=== PATIENT | male | born 1965 | race Caucasian/White ===

== ENCOUNTER 2017-03-26 16:16 | Emergency (ER) | payer SELFPAY ==
[2017-03-26 16:40] VITALS: BP 117/70; PULSE 61; TEMP 97.9; BMI 26.9
[2017-03-26] MEDS ORDERED: KETOROLAC TROMETHAMINE 60 MG/2 ML VIAL IM ONE (18:26)
[2017-03-26] MEDS ORDERED: diazePAM 5 MG TABLET PO ONE (18:26)
[2017-03-26] MEDS ORDERED: KETOROLAC TROMETHAMINE 60 MG/2 ML VIAL ONE (18:29)
[2017-03-26] MEDS ORDERED: diazePAM 5 MG TABLET ONE (18:30)
--- NOTE | 2017-03-26 18:36 | PDOC ---
History of Present Illness - General Chief Complaint: Back Pain Stated Complaint: LOWER BACK PAIN Time Seen by Provider: 03/26/17 16:52 History Source: Patient Exam Limitations: No Limitations - History of Present Illness Initial Comments: 03/26/17 18:30 CHIEF COMPLAINT: Lower back pain HISTORY OF PRESENT ILLNESS: 51-year-old male, History of OH, only taking atorvastin. Presents to the ER with low back pain. States that pain started two days ago. Was riding a bike and has been lifting heavy objects at work. Does have a hisotry of same but it went away on its own. This is not going away which prompted him to come to the ER. Nonradiating pain, no neurosensory deficits, no bowel or bladder difficulty incontinence or urinary retention, no saddle anesthesia, no footdrop. No history of IVDU or history of cancer. REVIEW OF SYSTEMS: GENERAL: Afebrile, denies any weakness RESPIRATORY: No cough, wheezing, or hemoptysis. CARDIAC: No chest pain or shortness of breath MUSCULOSKELETAL: Pain to generalized lower back. No point tenderness. Pain worse on right than left. SKIN : No erythema, no bruising, no deformity. GI/: Denies any abdominal pain, no urinary difficulty, incontinence or urinary retention. RECTAL: Denies any difficulty this A.m. NEUROLOGICAL: Denies any numbness or tingling. No neurosensory deficits. PHYSICAL EXAM: GENERAL: The patient is awake, alert, and fully oriented, in no acute distress. RESPIRATORY: Lungs clear bilaterally, no rhonchi wheezes or crackles CARDIAC: S1-S2 audible, no murmur rub or gallop MUSCULOSKELETAL: Pain to generalized lower back, More on the right then the left nonradiating, no tingling or sensory deficit. Less than 2 second cap refill , +4 popliteal and pedal pulses. Mild shift to lower back GI/: Abdomen soft, nontender, nondistended. No rebound tenderness. No masses palpable. MUSCULOSKELETAL: No spinal point tenderness. Normal reflexive and no deficits to sensation or strength. RECTAL: Normal Rectal Tone. SKIN: Warm, Dry, normal turgor, no erythema, no edema no bruising. Past History - Past Medical History Allergies/Adverse Reactions: Allergies Allergy/AdvReac Type Severity Reaction Status Date / Time No Known Allergies Allergy Verified 03/26/17 16:37 Home Medications: Ambulatory Orders Atorvastatin Ca [Lipitor] 40 mg PO HS #0 tablet 03/20/13 Diazepam [Valium] 5 mg PO Q6H #20 tablet MDD 4 03/26/17 Methylprednisolone [Medrol Dose Wai] 4 mg PO ASDIR #21 tablet 03/26/17 Anemia: No Asthma: No Cancer: No Cardiac Disorders: Yes (OH, 2 stents 08/2012) CVA: No COPD: No CHF: No Dementia: No Diabetes: No GI Disorders: No Disorders: No HTN: No Hypercholesterolemia: Yes Liver Disease: No Seizures: No Thyroid Disease: No - Surgical History Abdominal Surgery: No Appendectomy: No Cardiac Surgery: Yes (cardiac cath/2 stents) Cholecystectomy: No Lung Surgery: No Neurologic Surgery: No Orthopedic Surgery: No - Psycho/Social/Smoking Cessation Hx Suicidal Ideation: No Smoking Status: Yes Smoking History: Former smoker Have you smoked in the past 12 months: No Number of Cigarettes Smoked Daily: 20 If you are a former smoker, when did you quit?: 08/2012 Information on smoking cessation initiated: No 'Breaking Loose' booklet given: 09/01/12 Hx Alcohol Use: No Drug/Substance Use Hx: No Substance Use Type: None Hx Substance Use Treatment: No *Physical Exam - Vital Signs Last Vital Signs Temp Pulse Resp BP Pulse Ox 97.9 F 61 19 117/70 97 03/26/17 16:37 03/26/17 16:37 03/26/17 16:37 03/26/17 16:37 03/26/17 16:37 ED Treatment Course - RADIOLOGY Radiology Studies Ordered: Category Date Time Status SPINE-LUMBAR SACRAL [RAD] Stat Radiology 03/26/17 18:27 Ordered Medical Decision Making - Medical Decision Making 03/26/17 18:42 A/P: Patient here for evaluation of low back pain, history of low back pain was never followed up by Dr. Krishna after riding his bike and lifting something heavy at work. He is a mild shift to the lower back shifting to the right visible spasm. Patient states he does have a history of [place], unable to give Toradol at this time we'll give a gram of Tylenol and 5 mg of Valium, x-ray of lower back. 03/26/17 19:48 X-ray demonstrated scoliosis with no acute fracture dislocation, will DC patient home on Medrol Dosepak and Valium, follow-up with Dr. Martel from pain control. States some relief after medication No Heavy lifting greater than 10 pounds. I discussed the physical exam findings, ancillary test results and final diagnoses with the patient. I answered all of the patient's questions. The patient was satisfied with the care received and felt comfortable with the discharge plan and treatment plan. The patient will call to arrange follow-up and will return to the Emergency Department with any new, persistent or worsening symptoms. 03/26/17 19:59 *DC/Admit/Observation/Transfer Diagnosis at time of Disposition: Back pain Qualifiers: Back pain location: low back pain Chronicity: acute Back pain laterality: bilateral Sciatica presence: without sciatica Qualified Code(s): M54.5 - Low back pain - Discharge Dispostion Disposition: HOME Condition at time of disposition: Good Admit: No - Prescriptions Prescriptions: Methylprednisolone [Medrol Dose Wai] 4 mg PO ASDIR #21 tablet Diazepam [Valium] 5 mg PO Q6H #20 tablet MDD 4 - Referrals Referrals: César Martel MD [Staff Physician] - - Patient Instructions Printed Discharge Instructions: DI for Low Back Pain Additional Instructions: 1. Please return to the emergency department with any numbness, tingling, weakness, numbness or tingling to groin or legs, or loss of bowel or bladder function. 2. Use pain medication as ordered. 3. Please is to followup in the office of Dr. Martel for evaluation within a week if no improvement. 4. Ice or heat 5. Refrain from lifting anything above 10 pounds, until pain resolved. - Post Discharge Activity Work/School Note: Back to Work
[2017-03-26] MEDS ORDERED: ACETAMINOPHEN 500 MG TABLET (FP) ONE (18:39)
[2017-03-26] MEDS ORDERED: ACETAMINOPHEN 500 MG TABLET (FP) PO ONE (18:41)
== END 2017-03-26 20:08 | disposition home or self-care (01) ==
LOC: JERFT 16:16
DX: M54.5 Low back pain (principal); X50.0XXA Overexertion from strenuous movement or load, initial encounter; Y93.89 Activity, other specified; Y92.69 Other specified industrial and construction area as the place of occurrence of the external cause; Y99.0 Civilian activity done for income or pay; I25.2 Old myocardial infarction; Z95.5 Presence of coronary angioplasty implant and graft; Y93.55 Activity, bike riding
CPT/HCPCS: 72100-TC; 99281-25

== ENCOUNTER 2023-10-03 18:54 | Emergency (ER) | payer OTHER ==
[2023-10-03 19:05] VITALS: BP 143/65; PULSE 68; RESP 17; TEMP 98.2; BMI 26.6
[2023-10-03] MEDS: DIPHTH,PERTUSS(ACELL),TET 0.5 ML DISP.SYRIN IM ONE (20:39)
[2023-10-03] MEDS ORDERED: DIPHTH,PERTUSS(ACELL),TET 0.5 ML DISP.SYRIN IM ONE (20:41)
[2023-10-03] MEDS: ACETAMINOPHEN 500 MG TABLET (FP) PO ONE (20:51)
[2023-10-03] MEDS ORDERED: ACETAMINOPHEN 500 MG TABLET (FP) ONE (20:52)
== END 2023-10-03 20:55 | disposition home or self-care (01) ==
LOC: JERFT 18:54
PROC: 3E0234Z Introduction of Serum, Toxoid and Vaccine into Muscle, Percutaneous Approach (ICD-10-PCS; principal; 2023-10-03)
PROC: 0HQFXZZ Repair Right Hand Skin, External Approach (ICD-10-PCS; 2023-10-03)
DX: S61.210A Laceration without foreign body of right index finger without damage to nail, initial encounter (principal); W26.8XXA Contact with other sharp object(s), not elsewhere classified, initial encounter
CPT/HCPCS: 12001-25; 90471; 90715; 99283-25

== ENCOUNTER 2023-10-13 09:49 | Emergency (ER) | payer OTHER ==
[2023-10-13 09:52] VITALS: BP 111/58; PULSE 59; RESP 18; TEMP 97.6; BMI 29.0
== END 2023-10-13 10:12 | disposition home or self-care (01) ==
LOC: JER 09:49 → JERFT 09:49
DX: Z48.02 Encounter for removal of sutures (principal)
CPT/HCPCS: 99281-25